=== PATIENT | male | born 1970 | race Hispanic/Latino ===

== ENCOUNTER → 2018-06-20 | Day surgery (SDC) | payer OTHER ==
[~2018-06-20] MED LIST: ACETAMINOPHEN 1000 MG/100 ML IV ONE; ADDERALL 20 MG20 MG PO; BALANCED SALT SOLN (OPTH) 15 ML BTL IO ONE; DEXAMETHASONE SOD PHOS 10 MG/1 ML VIAL ONE; DEXAMETHASONE SOD PHOS INJ 4 MG/ML VIAL ONE; EPINEPHRINE HCL 1:1000 1ML 1 MG/ML AMP ONE; FENTANYL CITRATE/PF 100MCG/2 ML INJ ONE; GLYCOPYRROLATE INJ 1MG/ 5 ML SYR ONE; LIDOCAINE 1% W/EPINEPHRINE 20 ML VIAL ONE; LIDOCAINE HCL 2% LOCAL INJ 5 ML SDV VIAL INJ ONE; MIDAZOLAM HCL 2 MG/2 ML VIAL ONE; NEOSTIGMINE 5 MG/5ML SYR ONE; ONDANSETRON HCL INJ 2MG/ML 2ML 2 MG/ML VIAL ONE; PROPOFOL IV EMULSION 10 MG/ML 20 ML VIAL ONE; ROCURONIUM BROMIDE 10 MG/ML 5ML VIAL ONE; SEVOFLURANE INHAL SOLN 250 ML PEN BTL ONE
--- OUTSIDE RECORDS SUMMARY | 2018-06-20 07:56 | XMS REPORT | Clinical Summary ---
Author Author [facility] Organization [facility] Address Unknown Phone Unavailable Care Team Providers Care Librarian Name Role Phone Asked, No Pcp PCP Unavailable Allergies No Known Allergies Medications End Date Status Medication Sig Dispensed Refills Start Date Active armodafinil 150 mg tablet TK 1 T PO QD 0 IN THE 6 MORNING Active anastrozole (ARIMIDEX) 1 TK 2 TS PO AT 3 mg chemo tablet 48 H AFTER 6 WEEKLY TRT INJECTION Active ibuprofen (ADVIL,MOTRIN) 0 800 MG tablet 6 07/11/2017 ibuprofen (ADVIL,MOTRIN) Take 1 tablet 21 tablet 0 800 MG tablet (800 mg 8 total) by mouth 3 (three) times a day for 30 days. 07/11/2017 cyclobenzaprine Take 1 tablet 20 tablet 0 (FLEXERIL) 10 mg tablet (10 mg total) 8 by mouth 2 (two) times a day as needed for muscle spasms for up to 30 days. Active Problems Problem Noted Date SLAP tear of shoulder 11/06/2015 Post-traumatic osteoarthritis of right shoulder 10/10/2015 Immunizations Name Dates Previously Given Next Due Tdap 06/11/2017 Family History Medical History Relation Name Comments No Known Problems Father No Known Problems Mother Relation Name Status Comments Father Mother Social History Date Tobacco Use Types Packs/Day Years Used Former Smoker Smokeless Tobacco: Never Used Alcohol Use Drinks/Week oz/Week Comments Yes ocassionally Sex Assigned at Date Recorded Not on file Industry Job Start Date Occupation Not on file Not on file Not on file Travel End Travel History Travel Start No recent travel history available. Last Filed Vital Signs Not on file Plan of Treatment Health Maintenance Due Date Last Done Comments INFLUENZA VACCINE 09/07/2018 Results Not on fileafter 06/19/2017 Insurance Payer Benefit Subscriber ID Type Phone Address Plan / Group [facility] xxxxxxxxx HMO/PPO THCARE CHOICE/CHO ICE + TPL TPL-MED-DA xxxxxxxxxx TPL TA Advance Directives Patient has advance care planning documents on file. For more information, [facility] contact: Noel Mathis [address] [place] [address]
[2018-06-20 13:00] VITALS: BP 120/80
--- NOTE | 2018-06-20 17:13 | Operative Report ---
DATE OF PROCEDURE: 06/20/2018 SURGEON: Ibrahima Saba MD CHIEF COMPLAINT: Nasal obstruction, chronic sinusitis, bilateral nasal valve collapse. POSTOPERATIVE DIAGNOSES: Nasal obstruction, chronic sinusitis, bilateral nasal valve collapse. OPERATIVE PROCEDURE: Bilateral anterior and posterior ethmoidectomy, bilateral maxillary sinus antrostomy, bilateral resection of inflamed tissue of maxillary antrum, bilateral sphenoidectomy, septoplasty, bilateral nasal valve reconstruction with flap. ANESTHESIA: Anesthesiology group. INDICATIONS: This 48-year-old male has history of nasal obstruction, presents with drip and discharge from his nose. On examination, he was noted to have deviated nasal septum to the left side about 40% with a large septal spur. The patient also has nasal valve collapse, worse on the left, which improved with a Elijah maneuver. His condition has been treated with topical nasal steroid, decongestant, antibiotics with no improvement. The patient had a sinuplasty about a year ago, was doing well until the past few months. CT scan of paranasal sinuses done before surgery showed the patient has ethmoid sinus involvement bilaterally, maxillary sinus involvement on both sides, and sphenoid sinus involvement. Also confirmed deviated nasal septum. It was decided that endoscopic sinus surgery, septoplasty, nasal valve reconstruction, and other necessary procedures will be beneficial for him. DESCRIPTION OF PROCEDURE: The patient was taken to operating room, put under general anesthesia, endotracheally intubated. The nose was injected with 1% Xylocaine with 1:100,000 epinephrine for hemostasis. Epinephrine-soaked pledget was inserted into the nose and subsequently removed. The left paranasal sinuses were approached first. Middle turbinate was medialized, the bulla ethmoidalis was entered, anterior and posterior ethmoid sinuses were dissected in a systematic fashion. Inflamed tissue both in anterior and posterior ethmoid sinuses was dissected in a systematic fashion. Care was taken during dissection to ascertain although it was not entered. Sphenoid sinus was entered through the natural ostium, this was enlarged using a micro shaver, inflamed tissue in the sphenoid sinus was dissected using the micro shaver. Using a curved probe, natural ostium of maxillary sinus was entered, this was enlarged anteriorly and posteriorly using a backbiter and Thru-Cut forceps respectively. Inflamed tissue in maxillary antrum was dissected using the micro shaver. The right paranasal sinuses were approached. Middle turbinated was medialized, bulla ethmoidalis was entered, inflamed tissue in both the anterior and posterior ethmoid sinuses was dissected in systematic fashion. Care was taken during dissection to ascertain although it was not entered. Sphenoid sinus was entered through the natural ostium. Inflamed tissue of the sphenoid sinus was dissected using a micro shaver. Using a curved probe, the natural ostium in the maxillary sinus was entered. This was enlarged anteriorly and posteriorly using a backbiter and Thru-Cut forceps respectively. Inflamed tissue in the maxillary antrum was dissected using the micro shaver. The septoplasty was performed. Hemitransfixion incision was done on the left side, mucoperichondrial flap was elevated on the left. Bony cartilaginous junction was encountered and this was . The perpendicular plate of ethmoid was transected and this was removed along with the vomer. The septal spur collagenase portion removed using a [place] elevator and bony spur using a 4 mm straight chisel. The quadrangular cartilage after being freed from posterior and inferior constrain was able to swing back in the midline. The hemitransfixion incision was closed using 4-0 chromic suture in an interrupted fashion. on the right mucoperichondrial flap was closed using 4-0 chromic suture. The septum was reapproximated by placing a NasoPore along the left nasal cavity against the septum to reapproximate any tear in the mucoperichondrial flap on the left and prevent synechiae formation. NasoPore was inserted in the sinus cavities on either side. This was done to prevent synechiae formation and for hemostasis. The nasal valve reconstruction was undertaken. An incision was made in the intercartilaginous area, composite flap of lower lateral cartilage and endonasal mucosa was elevated, the flap was rotated laterally and superiorly. The intercartilaginous incision was closed using interrupted 3-0 chromic suture. Mattress suture of 4-0 Prolene, two of them were done along the nasal valve area to hold the flap in place during the healing process. Similar procedure was carried out on the right side. Again after intercartilaginous incision was made, a composite flap of lower lateral cartilage and endonasal mucosa was rotated superiorly and laterally. The incision was closed using 4-0 chromic suture in interrupted fashion. A mattress suture of Prolene was used to hold the flap in place during healing process. Two of these sutures were used. The patient tolerated the above procedure well with an estimated blood loss about 50 mL. He was given 20 mg of Decadron intraoperatively. The patient was able to be transferred to recovery room in stable condition. MD VANESA Carr/MODYovani /[id number]
--- NOTE | 2018-06-21 12:17 | Pre Op History & Physical ---
ANTICIPATED DATE OF SURGERY: June 20, 2018. CHIEF COMPLAINT: Chronic sinusitis, nasal obstruction, nasal valve collapse. HISTORY OF PRESENT ILLNESS: This 48-year-old male has history of nasal obstruction. He has postnasal drip discharge from his nose. He has frontal and maxillary pain. He has decreased sense of smell. The patient's condition has been treated with multiple antibiotics, topical nasal steroids, decongestant with no improvement. The patient's condition has some improvement after sinuplasty in June 2017, but past few months, the nasal valve collapse has gotten worse. CT scan of paranasal sinuses done recently showed the patient has chronic sinusitis with involvement of frontal sinus, ethmoid sinus involvement, maxillary sinus involvement, and sphenoid sinus involvement. Deviated nasal septum on the left side was noted. REVIEW OF SYSTEMS: System review showed no recent cardiovascular, respiratory, or GI problem. PAST MEDICAL HISTORY: The patient has no significant medical problem. PAST SURGICAL HISTORY: The patient had knee scope and had shoulder scope and injection and sinuplasty. ALLERGIES: HE HAS NO KNOWN ALLERGY OF MEDICATION. MEDICATIONS: He is on no regular medication. SOCIAL HISTORY: He is a nonsmoker and a social drinker. FAMILY HISTORY: Noncontributory. PHYSICAL EXAMINATION: The patient's vital signs were within normal limits. Ear exam showed normal tympanic membrane bilaterally. Nasal exam showed deviated nasal septum on the left side about 30% with a spur on the left. The patient has nasal valve collapse, worse on the left side, which improved with a Elijah maneuver. Oropharynx and oral cavity show 2+ tonsils bilaterally with Mallampati level 2. Neck exam showed no lymph node or thyroid palpable. Chest exam showed good air entry bilaterally. Cardiovascular exam showed S1, S2. No murmur noted. ASSESSMENT AND PLAN: Mr. Mao has chronic sinusitis, nasal obstruction, nasal valve collapse, which has been resistant to conservative therapy. The suggested treatment is endoscopic sinus surgery, septoplasty, resection of the inferior turbinate, and nasal valve reconstruction and other necessary procedure. Complication of procedure includes, but not limited to bleeding, infection, CSF leak, blindness, double vision, meningitis, septal perforation, septal hematoma, persistent nasal obstruction, persistent nasal crusting, nasal deformity, recurrence of the sinus problem, and persistence of nasal obstruction. Alternatives will be continued observation, continue antibiotic therapy, topical nasal steroid therapy, systemic steroid therapy, decongestant. The patient has elected to undergo surgical procedure. MD VANESA Carr/MODL /[id number]
--- NOTE | 2018-06-23 10:08 | Operative Report ---
DATE OF PROCEDURE: 06/20/2018 SURGEON: Ibrahima Saba MD CHIEF COMPLAINT: Chronic sinusitis, nasal obstruction, nasal valve collapse bilaterally. POSTOPERATIVE DIAGNOSES: Chronic sinusitis, nasal obstruction, nasal valve collapse bilaterally. OPERATIVE PROCEDURE: Bilateral anterior and posterior ethmoidectomy, bilateral maxillary sinus antrostomy, bilateral resection of tissue of maxillary antrum, bilateral sphenoidectomy, septoplasty, bilateral nasal valve reconstruction with flap. ANESTHESIA: Anesthesiology group. INDICATIONS: This 48-year-old male has history of nasal obstruction, presents with discharge from his nose. He also has nasal valve collapse on both sides. This improved with Custer maneuver. Examination of the septum showed that he had a deviated nasal septum on the left side with a large spur about 40%. His condition has been treated with topical nasal steroid, decongestant, antibiotics with no improvement. A CT scan of paranasal sinuses done before surgery showed the patient has chronic sinusitis involving the anterior and posterior ethmoid sinuses, maxillary sinus involvement and sphenoid sinus involvement. Also confirmed deviated nasal septum. After 8-10 weeks of antibiotics, systemic steroid and topical steroids, it was decided that endoscopic sinus surgery, septoplasty, nasal valve reconstruction, and other necessary procedures will be beneficial for him. DESCRIPTION OF PROCEDURE: The patient was taken to operating room, put under general anesthesia, endotracheally intubated. The nose was injected with 1% Xylocaine with 1:100,000 epinephrine for hemostasis. An epinephrine-soaked pledget was inserted into the nose. These were subsequently removed. The left paranasal sinuses were approached first. Middle turbinate was medialized and bulla ethmoidalis was entered. Anterior and posterior ethmoid sinuses were dissected in a systematic fashion. Inflamed tissue was noted both in anterior and posterior ethmoid sinus area. Care was taken during dissection, ascertain although it was not entered. The sphenoid sinus was entered through the natural ostium. This was enlarged using a micro shaver. Inflamed tissue in the sphenoid sinus was dissected using micro shaver. Using a curved probe, natural ostium of maxillary sinus was entered. This was enlarged anteriorly and posteriorly using backbiter and Thru-Cut forceps respectively. Inflamed tissue in maxillary antrum was dissected using the micro shaver. The right paranasal sinuses were approached. The middle turbinate was medialized, bulla ethmoidalis was entered. DICTATION ENDS HERE MD DEEPALI Carr /[id number]
== END | disposition home or self-care (01) ==
LOC: OR 07:53
PROVIDERS: ATTEND Otolaryngology Otolaryngology/Facial Plastic Surgery
DX: J32.2 Chronic ethmoidal sinusitis (principal); J32.0 Chronic maxillary sinusitis; J32.3 Chronic sphenoidal sinusitis; M95.0 Acquired deformity of nose; J34.89 Other specified disorders of nose and nasal sinuses; J34.2 Deviated nasal septum; G47.33 Obstructive sleep apnea (adult) (pediatric); I44.4 Left anterior fascicular block; Z88.6 Allergy status to analgesic agent; Z96.611 Presence of right artificial shoulder joint; Z87.891 Personal history of nicotine dependence
CPT/HCPCS: 30465; 30520; 31259; 31267; 88300; 88305; 93005; J0131; J0171; J1100 ×2; J2001; J2250; J2405; J2704; J3490; 88304